=== PATIENT | female | born 1965 | race Caucasian/White ===

== ENCOUNTER 2016-08-30 07:37 | Day surgery (SDC) | payer OTHER ==
[~2016-08-30] VITALS: Ht 142.2 cm; Wt 49.0 kg
[2016-08-30 09:12] VITALS: Ht 142.2 cm; Wt 49.0 kg
[2016-08-30] MEDS ORDERED: LISI-313 PO (09:29)
[2016-08-30] MEDS ORDERED: HYDR12.58 PO (09:29)
[2016-08-30] MEDS ORDERED: RANI150T5 PO (09:29)
[2016-08-30 10:24] VITALS: BP 162/67; PULSE 70; RESP 16
[2016-08-30 11:30] VITALS: BP 104/59; RESP 20
--- NOTE | 2016-08-30 14:48 | GILP ---
DATE OF PROCEDURE: 08/30/2016 PROCEDURES PERFORMED: EGD with biopsy and colonoscopy. INDICATION: A 51-year-old female undergoing this procedure for dysphagia and epigastric pain and co lonoscopy for colon cancer screening. The risks of the procedure, related and unrelated complicatio ns, anesthetic risks, alternatives discussed. Informed consent was obtained. DESCRIPTION OF PROCEDURE: The patient was brought to the GI lab, was given Versed 4 mg, fentanyl 10 0 mcg. After optimum sedation, scope was passed with much ease into esophagus which was grossly wit hin normal limits. Z line was at 37 cm. Stomach mucosa revealed gastritis. Biopsy taken to rule o ut H. pylori infection. She had a small nodule 1 cm, biopsied. Duodenum, first and second part morro eared normal. Retroflexion was normal. Scope was straightened out and removed with good patient to lerance. IMPRESSION: 1. Antral nodule biopsied. 2. Gastritis. 3. Normal esophagus. 4. Z line regular at 37 cm. PLAN: Review histopathology. Continue present care. She may need a repetition of EGD after 1 year to evaluate the nodule if the biopsy is nonconclusive. COLONOSCOPY REPORT: The patient was turned around, scope was passed with much ease into the rectum, advanced through sigmoid, descending, transverse colon all the way into the cecum. Appendiceal vinicio fice identified entering to terminal ileum which was normal. At different angulations she had some collection of solid stool which could not be removed, I would say occluding the visibility by 5% ne ar the hepatic flexure, ascending colon. The rest of the colon appeared normal. Retroversion done. Retroversion also was normal in the rectum. Digital exam also was normal. Scope was straightened out and removed with good patient tolerance. Normal finding all the way into the cecum. The prepar ation was inadequate. IMPRESSION: . Normal terminal ileum. PLAN: To stay on high fiber diet. Dictated By: GRADY POLK/NTS Conf#: [id number] DID#: [id number] CC: GRADY FRIEND MD;*EndCC*
== END 2016-08-30 12:52 | disposition home or self-care (01) ==
LOC: GIL 07:37
PROVIDERS: ATTEND Internal Medicine Gastroenterology
DX: Z12.11 Encounter for screening for malignant neoplasm of colon (principal); K29.50 Unspecified chronic gastritis without bleeding
CPT/HCPCS: 43239; 45378; Z7610